=== PATIENT | female | born 1955 | race Caucasian/White ===

== ENCOUNTER → 2016-05-24 | Outpatient (CLI) | payer MEDICARE, BC | LOC: RAD 07:31 | PROVIDERS: ATTEND Internal Medicine Gastroenterology | DX: R10.9 Unspecified abdominal pain (principal); K59.00 Constipation, unspecified; K21.9 Gastro-esophageal reflux disease without esophagitis | CPT/HCPCS: 78264; A9541 ==

== ENCOUNTER 2017-09-24 18:13 | Emergency (ER) | payer MEDICARE, BC ==
[2017-09-24 18:20] VITALS: BP 142/83
--- NOTE | 2017-09-24 18:28 | ER Document Report ---
HPI - HPI Patient complains to provider of: Left thoracic back spasms Onset: Other - 2 weeks Pain Level: 5 Context: 62-year-old female with chronic back pain due to previous fusions of the cervical spine and L5-S1 is complaining of left lower thoracic back pain and spasms since she has been rachel and putting up corn and green beans for 3-4 hours at a time scraping it off the cobbled rachel. She did [facility] emergency room on Tuesday and they put on a fentanyl 75 mcg patch and she did not have pain for 2 days. She takes hydrocodone 20 mg delayed release in 10 mg twice a day. She went to her pain management doctor Eber on who did not increase her maintenance pain medications. He told her to take Soma nightly. She is here camping in [place] and came to the emergency room by ambulance because of these back pains. No fever or chills. No rash. No chest pain or shortness of breath. No abdominal pain. No nausea vomiting or diarrhea. No dysuria frequency or urgency. No hematuria. They did a CAT scan at [facility] looking for a kidney stone although this pain is above the kidney area. While I was talking with her she jumped out of the wheelchair and stood at the door and then would get back in the chair and cry out in spasms. She states she has been on opiates for 10 years cannot take nonsteroidal anti- inflammatories because it "messes up her kidney function". Associated Symptoms: None Exacerbated by: Other - See above Relieved by: Denies Similar symptoms previously: No Recently seen / treated by doctor: No - ROS ROS below otherwise negative: Yes Systems Reviewed and Negative: Yes All other systems reviewed and negative - REPRODUCTIVE Reproductive: DENIES: : Past Medical History - General Information source: Patient - Social History Smoking Status: Unknown if Ever Smoked Frequency of alcohol use: None Drug Abuse: None Lives with: Spouse/Significant other Family History: Reviewed & Not Pertinent Past Surgical History: Reports: Hx Hysterectomy, Hx Orthopedic Surgery - Cervical spine and lumbar fusion - Immunizations Hx Diphtheria, Pertussis, Tetanus Vaccination: Yes Vertical Provider Document - CONSTITUTIONAL Agree With Documented VS: Yes Exam Limitations: No Limitations - INFECTION CONTROL TRAVEL OUTSIDE OF THE [place] IN LAST 30 DAYS: No - HEENT HEENT: Normocephalic - NECK Neck: Supple - RESPIRATORY Respiratory: Breath Sounds Normal, No Respiratory Distress Notes: Tender left mid thoracic back muscles - CARDIOVASCULAR Cardiovascular: Regular Rate, Regular Rhythm - GI/ABDOMEN Gastrointestinal: Abdomen Soft, Abdomen Non-Tender - BACK Notes: Tender in the location noted above - MUSCULOSKELETAL/EXTREMETIES Musculoskeletal/Extremeties: MAEW, FROM, Tender - See above - NEURO Level of Consciousness: Awake, Agitated - Speaks curtly with verbal and body language frustration, tearful Motor/Sensory: No Motor Deficit, No Sensory Deficit - DERM Integumentary: No Rash Course - Re-evaluation Re-evalutation: 09/24/17 19:10 The patient has a pain management doctor on who she saw who was unwilling to increase her opiate dosage. He told her that she should take Soma once at night (her rX for soma says four times per day). While patient had her head down and covering her eyes her was rolling his eyeballs and shaking his hands together like he was shaking her in frustration with his , he mouther "she is alright". I asked the patient if she wanted Valium for the muscle spasms or an opiate injection since it was obvious that the maintenance dose in the 10 mg of hydrocodone for breakthrough pain was not managing this pain due to the rachel. She stated that the doctor on told her to do the activity for 15 minutes and rest for 15 minutes which is what I also suggested not to do repetition work that causes this pain. she stated she took Valium 3 hours ago. I told her that I did not see that on the [place] controlled substance website as I was verifying her meds like I do for every patient before giving pain medication in the emergency department that I did see alprazolam along with the other hydocodone meds, belasomra, ritalin, and soma. She stated that what she got was up to me. I told her that it was something that she and I needed to agree on and what was best for her because she was suffering. I emphasized to her that she needs to see her pain management doctor on Tuesday that what he is prescribed is not managing the pain that she is getting due to the recent rachel of green beans and corn for 3-4 hours at a time over the past 2 weeks. She stated that the last time she did this amount rachel last year she was on 80 mg daily of the hydrocodone and she is weaned down to 20 mg daily. - Vital Signs Vital signs: Temp Pulse Resp BP Pulse Ox 98.2 F 106 H 18 142/83 H 99 09/24/17 18:19 09/24/17 18:19 09/24/17 18:19 09/24/17 18:19 09/24/17 18:19 Discharge - Discharge Clinical Impression: Left thoracic back strain Condition: Good Disposition: HOME, SELF-CARE Instructions: Chronic Pain Control ([facility]), Pain Medication Injection ([facility]), Upper Back Strain ([facility]), Warm Packs ([facility]) Additional Instructions: Warm compress See your pain management doctor on Tuesday and tell them that the 20 mg Hysyngla and the 10 mg of hydrocodone twice a day is not managing your thoracic back strain from rachel Return to the emergency room for any concerns You can take the Soma up to 4 times a day as prescribed by her pain management doctor Referrals: GERARDO VELOZ MD [NO LOCAL MD] - Follow up as needed
[2017-09-24] MEDS ORDERED: HYDROMORPHONE HCL INJ/PF 2 MG/ML AMPULE IM ONE (18:57)
== END 2017-09-24 19:18 | disposition home or self-care (01) ==
LOC: ER 18:13
DX: S29.012A Strain of muscle and tendon of back wall of thorax, initial encounter (principal); X50.3XXA Overexertion from repetitive movements, initial encounter; Y93.89 Activity, other specified; M62.830 Muscle spasm of back; M54.9 Dorsalgia, unspecified; G89.29 Other chronic pain; Z79.891 Long term (current) use of opiate analgesic; Z98.1 Arthrodesis status; Z79.899 Other long term (current) drug therapy
CPT/HCPCS: 99283; 96372; J1170